=== PATIENT | female | born 1980 | race Caucasian/White ===

== ENCOUNTER 2016-11-03 14:59 | Emergency (ER) | payer SELFPAY ==
[~2016-11-03] VITALS: Ht 154.9 cm; Wt 71.4 kg
[~2016-11-03 14:59] MED LIST: SERT100T PO
[2016-11-03 15:53] VITALS: BP 143/91
== END 2016-11-03 16:28 | disposition left against medical advice (07) ==
LOC: MED 14:59
DX: M54.42 Lumbago with sciatica, left side (principal); Z53.21 Procedure and treatment not carried out due to patient leaving prior to being seen by health care provider

== ENCOUNTER 2017-12-15 15:36 | Emergency (ER) | payer OTHER ==
[~2017-12-15] VITALS: Ht 154.9 cm; Wt 73.9 kg
[2017-12-15 15:47] VITALS: BP 118/79
--- NOTE | 2017-12-15 15:54 | NUR ---
PT AMBULATED TO ER BED 03
--- NOTE | 2017-12-15 16:00 | NUR ---
37Y/F c/o bl lower adomen and left flank pain x yesterday. Patient denies any fevers, urinary complaints, or n/v/d. Patient also reports of slight vaginal bleeding x 3 days. ER MD MADE AWARE OF PT STATUS.
[2017-12-15] MEDS ORDERED: KETOROLAC 30 MG/ML VIAL IVP ONE (16:10)
[2017-12-15] MEDS ORDERED: NACL 0.9% 1,000 ML IV ONE (16:10)
[2017-12-15] MEDS ORDERED: ONDANSETRON 4 MG/2 ML VIAL IVP ONE (16:10)
[2017-12-15 16:54] LABS: BASOPHILS # (AUTO) 0.1 K/uL (0.00-0.22); BASOPHILS % (AUTO) 0.8 % (0.0-2.0); EOSINOPHILS # (AUTO) 0.1 K/uL (0-0.4); EOSINOPHILS % (AUTO) 1.1 % (0.0-4.0); HEMATOCRIT 40.7 % (36-48); LYMPHOCYTES # (AUTO) 2.1 K/uL (2.5-16.5); MEAN CORPUSCULAR HEMOGLOBIN 29 pg (27-31); MEAN CORPUSCULAR HGB CONC 34 g/dL (33-37); MEAN CORPUSCULAR VOLUME 83.2 fL (80-94); MONOCYTES # (AUTO) 0.6 K/uL (0.8-1.0); MONOCYTES % (AUTO) 6.2 % (1.7-9.3); NEUTROPHILS # (AUTO) 6.3 K/uL (1.8-7.7); NEUTROPHILS % (AUTO) 68.9 % (42.2-75.2); PLATELET COUNT (AUTO) 419 K/uL (140-450); RED CELL DISTRIBUTION WIDTH 13.5 % (11.6-13.7); WHITE BLOOD COUNT (AUTO) 9.2 K/uL (4.8-10.8)
[2017-12-15 17:06] LABS: ANION GAP 11.9 (8-16); CREATININE 0.8 mg/dL (0.6-1.3); POTASSIUM 3.9 mmol/L (3.5-5.1)
[2017-12-15 17:07] LABS: APPEARANCE,URINE CLEAR (CLEAR); BILIRUBIN,URINE NEGATIVE (NEGATIVE); BLOOD, URINE NEGATIVE (NEGATIVE); COLOR,URINE YELLOW (YELLOW); LEUKOCYTE ESTERASE ,URINE NEGATIVE (NEGATIVE); NITRITE, URINE NEGATIVE (NEGATIVE); PH,URINE 6.5 (5.0-9.0); UGLUCOSE NEGATIVE (NEGATIVE)
[2017-12-15 17:12] LABS: ALBUMIN 3.5 g/dL (3.4-5.0); TOTAL BILIRUBIN 0.6 mg/dL (0.0-1.0)
[2017-12-15 17:15] LABS: PROTHROMBIN TIME 10.3 secs (10.8-13.4)
[2017-12-15 19:34] VITALS: BP 123/82
== END 2017-12-15 19:34 | disposition home or self-care (01) ==
LOC: MED 15:36
DX: N93.9 Abnormal uterine and vaginal bleeding, unspecified (principal); M54.9 Dorsalgia, unspecified; Z79.899 Other long term (current) drug therapy
CPT/HCPCS: 36415; 74176; 80053; 81003; 81025; 82150; 83690; 85025; 85610; 85730; 96361; 96374; 96375; 99285; J1885; J2405; J7030

== ENCOUNTER 2018-04-05 20:02 | Emergency (ER) | payer OTHER ==
[~2018-04-05] VITALS: Ht 154.9 cm; Wt 67.1 kg
[2018-04-05 20:23] VITALS: BP 122/88
--- NOTE | 2018-04-05 20:25 | NUR ---
TO LOBBY A/W BED, AMBULATORY, VSS, GATITO NOTED
--- NOTE | 2018-04-05 21:20 | NUR ---
PT TAKEN TO BED 1
--- NOTE | 2018-04-05 21:20 | NUR ---
ASSUMED CARE OF PT AT THIS TIME. C/O ALEX AND BI-LATERAL EAR ACHE X 2 DAYS. AAOX4 WITH EVEN AND STEADY GAIT; PATIENT STATES PAIN OF 10/1; VSS; PATIENT POSITIONED FOR COMFORT; HOB ELEVATED; BEDRAILS UP X2; BED DOWN. ER MD MADE AWARE OF PT STATUS. WILL CONTINUE TO MONITOR.
--- NOTE | 2018-04-05 21:38 | NUR ---
Dr. Thurman evaluating patient at bedside.
[2018-04-05] MEDS ORDERED: KETOROLAC 60 MG/2 ML VIAL IM ONE (21:55)
[2018-04-05] MEDS ORDERED: ONDANSETRON 4 MG ODT PO ONE (21:55)
--- NOTE | 2018-04-05 22:25 | NUR ---
Patient discharged with v/s stable. Written and verbal after care instructions given and explained. Patient alert, oriented and verbalized understanding of instructions. Ambulatory with steady gait. All questions addressed prior to discharge. ID band removed. Patient advised to follow up with PMD. Rx of TRMAMDOL, ZOFRAN, AND MOTRIN given. Patient educated on indication of medication including possible reaction and side effects. Opportunity to ask questions provided and answered.
[2018-04-05 22:45] VITALS: BP 118/78
== END 2018-04-05 22:25 | disposition home or self-care (01) ==
LOC: MED 20:02
DX: R51 Headache (principal); I10 Essential (primary) hypertension
CPT/HCPCS: 96372; 99283; J1885; S0119

== ENCOUNTER 2019-04-25 12:17 | Emergency (ER) | payer OTHER ==
[~2019-04-25] VITALS: Ht 153.7 cm; Wt 65.9 kg
[2019-04-25 12:25] VITALS: BP 132/88
--- NOTE | 2019-04-25 12:32 | NUR ---
PT AMBULATED TO BED 1 WITH STEADY GAIT
--- NOTE | 2019-04-25 12:38 | NUR ---
pt c/o bilateral breast pain x 7 months--has seen her pmd which scheduled a mammogram oct 1 denies injury or discoloration noted---continues with pt
[2019-04-25 16:15] VITALS: BP 132/88
--- NOTE | 2019-04-25 16:15 | NUR ---
Patient discharged with v/s stable. Written and verbal after care instructions given and explained. Patient alert, oriented and verbalized understanding of instructions. Ambulatory with steady gait. All questions addressed prior to discharge. ID band removed. Patient advised to follow up with PMD. Rx of NAPROSYN AND MACROBID given. Patient educated on indication of medication including possible reaction and side effects. Opportunity to ask questions provided and answered.
== END 2019-04-25 16:14 | disposition home or self-care (01) ==
LOC: MED 12:17
DX: E84.9 Cystic fibrosis, unspecified (principal); I10 Essential (primary) hypertension; Z79.899 Other long term (current) drug therapy
CPT/HCPCS: 76641; 81002; 81025; 99284; Q0092

== ENCOUNTER 2019-10-04 18:29 | Emergency (ER) | payer OTHER ==
[~2019-10-04] VITALS: Ht 170.2 cm; Wt 66.7 kg
[2019-10-04 18:35] VITALS: BP 130/74
--- NOTE | 2019-10-04 18:42 | NUR ---
PATIENT AMBULATED TO BED 2.
[2019-10-04] MEDS ORDERED: BACL10TA4 PO (18:55)
[2019-10-04] MEDS ORDERED: IBUP-2213 PO (18:55)
--- NOTE | 2019-10-04 19:15 | NUR ---
came in with c/o left back, leg dylan for 2 days, 7/10 pain level
[2019-10-04] MEDS ORDERED: KETOROLAC 30 MG/ML VIAL IM ONE (19:50)
[2019-10-04 20:21] VITALS: BP 127/78
--- NOTE | 2019-10-04 20:22 | NUR ---
Patient discharged with v/s stable. Written and verbal after care instructions given and explained. Patient alert, oriented and verbalized understanding of instructions. Ambulatory with steady gait. All questions addressed prior to discharge. ID band removed. Patient advised to follow up with PMD. Rx of NAPROSYN/PREDNISONE given. Patient educated on indication of medication including possible reaction and side effects. Opportunity to ask questions provided and answered.
== END 2019-10-04 20:22 | disposition home or self-care (01) ==
LOC: MED 18:29
DX: M54.42 Lumbago with sciatica, left side (principal); I10 Essential (primary) hypertension; Z79.899 Other long term (current) drug therapy; Z90.49 Acquired absence of other specified parts of digestive tract; Z98.890 Other specified postprocedural states
CPT/HCPCS: 81002; 81025; 96372; 99283; J1885

== ENCOUNTER 2020-02-24 15:52 | Emergency (ER) | payer SELFPAY ==
[~2020-02-24] VITALS: Ht 154.9 cm; Wt 63.5 kg
[~2020-02-24 15:52] MED LIST changes: +BACL10TA4 PO; +IBUP-2213 PO
[2020-02-24 15:56] VITALS: BP 145/97
--- NOTE | 2020-02-24 15:59 | NUR ---
PT AMUBLATED TO 11
--- NOTE | 2020-02-24 16:11 | NUR ---
39 Y/O F C/C MIDDLE BACK PAIN, 10/10 PAIN, PRESSURE SENSATION, RADIATING TO THE LOWER EXTREMITIES X 1 DAY. PT DENIES TRAUMA. 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 NERVE DAMAGE ON LEFT SIDE INCLUDING SCIATICA. NKA. HX DEPRESSION,ANXIETY. NO RX. NO NVD. SIDE RAIL X1.
[2020-02-24] MEDS ORDERED: HYDROcodone/APAP 5/325 MG 1 TAB TAB PO ONE (16:30)
[2020-02-24 17:03] LABS: BASOPHILS % (AUTO) 0.4 % (0.0-2.0); EOSINOPHILS # (AUTO) 0.1 K/uL (0-0.4); HEMATOCRIT 35.8 % (36-48); HEMOGLOBIN 11.9 g/dL (12.0-16.0); LYMPHOCYTES # (AUTO) 2.2 K/uL (2.5-16.5); MEAN CORPUSCULAR HEMOGLOBIN 28 pg (27-31); MEAN CORPUSCULAR HGB CONC 33 g/dL (33-37); MEAN CORPUSCULAR VOLUME 85.1 fL (80-94); MONOCYTES # (AUTO) 0.5 K/uL (0.8-1.0); MONOCYTES % (AUTO) 5.9 % (1.7-9.3); NEUTROPHILS # (AUTO) 5.1 K/uL (1.8-7.7); NEUTROPHILS % (AUTO) 64.7 % (42.2-75.2); PLATELET COUNT (AUTO) 393 K/uL (140-450); WHITE BLOOD COUNT (AUTO) 7.8 K/uL (4.8-10.8)
[2020-02-24 17:19] LABS: ALBUMIN 3.3 g/dL (3.4-5.0); ANION GAP 13.9 (8-16); CARBON DIOXIDE 24.9 mmol/L (21-32); CREATININE 0.9 mg/dL (0.6-1.3); POTASSIUM 3.8 mmol/L (3.5-5.1); TOTAL BILIRUBIN 0.6 mg/dL (0.0-1.0)
[2020-02-24 18:11] VITALS: BP 145/97
--- NOTE | 2020-02-24 18:11 | NUR ---
Patient discharged with v/s stable. Written and verbal after care instructions given and explained. Patient alert, oriented and verbalized understanding of instructions. Ambulatory with steady gait. All questions addressed prior to discharge. ID band removed. Patient advised to follow up with PMD. Rx of TYLENOL, GABAPENTIN, CYCLOBENZAPINE HYDROCHLORIDE given. Patient educated on indication of medication including possible reaction and side effects. Opportunity to ask questions provided and answered.
== END 2020-02-24 18:11 | disposition home or self-care (01) ==
LOC: MED 15:52
DX: K46.9 Unspecified abdominal hernia without obstruction or gangrene (principal); M54.5 Low back pain; I10 Essential (primary) hypertension
CPT/HCPCS: 36415; 80053; 81002; 81025; 85025; 99283; 99285

== ENCOUNTER 2021-03-19 20:32 | Emergency (ER) | payer SELFPAY ==
[~2021-03-19] VITALS: Ht 154.9 cm; Wt 68.5 kg
[2021-03-19 20:41] VITALS: BP 138/80
--- NOTE | 2021-03-19 21:22 | NUR ---
Toña najera in [facility] - 03/19/21 at 2123 by [facility] PT AMBULATED TO BED 09
--- NOTE | 2021-03-19 21:26 | NUR ---
PT AMBULATED TO BED 11
--- NOTE | 2021-03-19 22:25 | NUR ---
Dr. Monique examining patient.
[2021-03-19] MEDS ORDERED: IBUP-2218 PO (22:51)
[2021-03-19 23:17] VITALS: BP 132/90
--- NOTE | 2021-03-19 23:19 | NUR ---
DISCHARGED HOME WITH AFTER CARE AND RX SENT TO PHARMACY. PT AWAKE ALERTX3 AMBULATORY.
== END 2021-03-19 23:19 | disposition home or self-care (01) ==
LOC: MED 20:32
DX: M25.521 Pain in right elbow (principal); I10 Essential (primary) hypertension; X58.XXXA Exposure to other specified factors, initial encounter; Y93.89 Activity, other specified; Y92.89 Other specified places as the place of occurrence of the external cause; Y99.8 Other external cause status
CPT/HCPCS: 73080; 73090; 99284

== ENCOUNTER 2022-09-26 17:53 | Emergency (ER) | payer SELFPAY ==
[~2022-09-26] VITALS: Ht 154.9 cm; Wt 73.5 kg
[~2022-09-26 17:53] MED LIST changes: +IBUP-2218 PO
[2022-09-26 17:58] VITALS: BP 137/84
--- NOTE | 2022-09-26 18:26 | NUR ---
Dr. Gracia evaluating pt at bedside
--- NOTE | 2022-09-26 18:30 | NUR ---
Note natashaelizabeth in EDM - 09/26/22 at 1831 by SHOAIB 41 y/o F BIB self from home c/o perianal and vaginal blisters +itchiness x 2 weeks. States with translucent white vaginal discharge and little blood from wiping. Patient denies dysuria, urinary symptoms, n/v/d, abdominal pain, pelvic/flank/back pain, chest pain. Pt placed in a gown. Bed locked in lowest position, side rails x 1. LMP: August 2022. PMH/Sx/Meds: Denies BRAYAN
[2022-09-26] MEDS ORDERED: HYD2.5O TP (19:38)
--- NOTE | 2022-09-26 19:44 | NUR ---
Report and transfer of care endorsed to [facility] Matthews.
[2022-09-26 19:56] VITALS: BP 137/84
--- NOTE | 2022-09-26 19:57 | NUR ---
Patient discharged with v/s stable. Written and verbal after care instructions given and explained. Patient verbalized understanding. Ambulatory with steady gait. All questions addressed prior to discharge. Advised to follow up with PMD. Pt left with her belongings.
== END 2022-09-26 19:56 | disposition home or self-care (01) ==
LOC: MED 17:53
DX: L30.9 Dermatitis, unspecified (principal); I10 Essential (primary) hypertension; Z79.899 Other long term (current) drug therapy
CPT/HCPCS: 99282

== ENCOUNTER 2022-12-08 10:51 | Emergency (ER) | payer SELFPAY ==
[~2022-12-08] VITALS: Ht 157.5 cm; Wt 83.9 kg
[~2022-12-08 10:51] MED LIST changes: +HYD2.5O TP
[2022-12-08 11:07] VITALS: BP 135/85
[2022-12-08] MEDS ORDERED: NAPR-1704 PO (12:58)
--- NOTE | 2022-12-08 13:29 | NUR ---
Patient discharged with v/s stable. Written and verbal after care instructions given and explained. Patient alert, oriented and verbalized understanding of instructions. Ambulatory with steady gait. All questions addressed prior to discharge. ID band removed. Patient advised to follow up with PMD. Rx of NAPROXYN given. Patient educated on indication of medication including possible reaction and side effects. Opportunity to ask questions provided and answered.
== END 2022-12-08 13:29 | disposition home or self-care (01) ==
LOC: MED 10:51
DX: S83.8X1A Sprain of other specified parts of right knee, initial encounter (principal); E88.89 Other specified metabolic disorders; I10 Essential (primary) hypertension; Z79.899 Other long term (current) drug therapy; Z88.8 Allergy status to other drugs, medicaments and biological substances; W18.30XA Fall on same level, unspecified, initial encounter; Y93.89 Activity, other specified; Y92.89 Other specified places as the place of occurrence of the external cause; Y99.8 Other external cause status
CPT/HCPCS: 73562; 99283

== ENCOUNTER 2023-10-02 17:32 | Emergency (ER) | payer SELFPAY ==
[~2023-10-02] VITALS: Ht 154.9 cm; Wt 65.3 kg
[~2023-10-02 17:32] MED LIST changes: +NAPR-1704 PO
[2023-10-02 17:49] VITALS: BP 143/90; PULSE 87; RESP 16; TEMP 98.2; O2SAT 99
[2023-10-02] MEDS ORDERED: IBUP-2213 PO (20:48)
[2023-10-02 21:20] VITALS: BP 134/60; PULSE 79; RESP 15; TEMP 98.3; O2SAT 95
== END 2023-10-02 21:18 | disposition home or self-care (01) ==
LOC: MED 17:32
DX: S93.491A Sprain of other ligament of right ankle, initial encounter (principal); I10 Essential (primary) hypertension; F17.200 Nicotine dependence, unspecified, uncomplicated; Z72.89 Other problems related to lifestyle; X58.XXXA Exposure to other specified factors, initial encounter; Y93.89 Activity, other specified; Y92.89 Other specified places as the place of occurrence of the external cause; Y99.8 Other external cause status
CPT/HCPCS: 73610; 99283; Q0092